=== PATIENT | female | born 1945 | race Caucasian/White ===

== ENCOUNTER → 2019-12-27 | Outpatient (CLI) | payer MEDICARE, OTHER | LOC: M.MRI 13:24 | PROVIDERS: ATTEND Orthopaedic Surgery | DX: S83.242A Other tear of medial meniscus, current injury, left knee, initial encounter (principal); M17.12 Unilateral primary osteoarthritis, left knee; M25.562 Pain in left knee; X58.XXXA Exposure to other specified factors, initial encounter; Y93.89 Activity, other specified; Y92.89 Other specified places as the place of occurrence of the external cause; Y99.8 Other external cause status ==

== ENCOUNTER → 2020-01-18 | Outpatient (CLI) | payer MEDICARE, OTHER ==
[~2020-01-18] MED LIST: ALL DAY ALLERGY10 M3 PO; ASPIR-TRIN325 MG PO; COLACE 100 MG100 MG PO; CYCLOBENZAPRINE10 MG PO; DOXYCYCLINE HYC20 MG PO; HYDROCODON-ACE1 EAC7 PO; LORAZEPAM 0.50.5 MG PO; PERCOCET 5-3251 EACH PO; PHENERGAN 25 MG25 M1 PO; PROAIR HFA8.5 GM INH; ROSUVASTATIN CA40 MG PO; TELMISARTAN40 MG PO; TUMS200 MG PO; XARELTO10 MG PO
[2020-01-18 11:28] LABS: URINE BILIRUBIN NEGATIVE (Negative); URINE BLOOD 2+ (Negative); URINE CLARITY SL CLOUDY; URINE COLOR YELLOW; URINE GLUCOSE-RANDOM NEGATIVE (Negative); URINE KETONES NEGATIVE (Negative); URINE LEUKOCYTES-REFLEX 1+ (Negative); URINE NITRITE-REFLEX NEGATIVE (Negative); URINE PROTEIN 2+ (Negative); URINE SPECIFIC GRAVITY >= 1.030 (1.005-1.030); URINE UROBILINOGEN 0.2 E.U./dl (0.2-1.0)
[2020-01-18 11:34] LABS: SQUAMOUS 4-10 Moderate /LPF (0-3)
[2020-01-18 11:35] LABS: URINE WBC-REFLEX 6-15 Few /HPF (0-5)
[2020-01-18 11:36] LABS: HYALINE CASTS 4-10 Moderate /LPF (None Seen); MUCUS >6 Heavy strn/LPF (None Seen)
[2020-01-18 11:36] LABS: HEMATOCRIT 41.8 % (37.0-47.0); HEMOGLOBIN 14.2 gm/dL (12.0-15.0); MCH 29.6 pg (26.0-34.0); MCV 87.2 fL (80.0-100.0); MPV 10.5 fl. (7.2-11.1); RBC 4.79 mil/uL (4.20-5.00); RDW-CV 14.1 % (10.5-14.5); WBC 5.6 thou/uL (4.0-11.0)
[2020-01-18 11:37] LABS: CRYSTALS None Seen /LPF (None Seen)
[2020-01-18 11:44] LABS: PROTIME 10.3 Seconds (9.20-11.50)
[2020-01-18 11:47] LABS: ALBUMIN 3.6 g/dL (3.4-5.0); CALCIUM 8.9 mg/dL (8.5-10.1); CREATININE 1.3 mg/dL (0.6-1.3); POTASSIUM 3.7 mmol/L (3.5-5.1); TOTAL BILIRUBIN 0.6 mg/dL (<0.1-1.0); TOTAL PROTEIN 7.8 g/dL (6.4-8.2)
--- NOTE | 2020-01-18 13:54 | EKG ---
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1945 Requested By: Cristiano Johnson Order Number: [id number] Reading MD: Giorgio Hopkins Measurements Intervals Mobile Rate: 78 P: 51 LA: 143 QRS: -13 QRSD: 90 T: 49 QT: 389 QTc: 444 Interpretive Statements Sinus rhythm Probable left atrial enlargement Abnormal R-wave progression, early transition Borderline repolarization abnormality No previous ECG available for comparison Electronically Signed On 01-18-2020 13:54:27 CDT by Giorgio Hopkins [email or web address] <ELECTRONICALLY SIGNED> By: Giorgio Hopkins MD, [facility] 01/18/20 1354 1141 1141 Giorgio Hopkins MD, [facility] /EPI
== END ==
LOC: M.LAB 01-17 14:06
PROVIDERS: ATTEND Orthopaedic Surgery
DX: Z01.818 Encounter for other preprocedural examination (principal); Z11.59 Encounter for screening for other viral diseases; M17.12 Unilateral primary osteoarthritis, left knee; I49.9 Cardiac arrhythmia, unspecified

== ENCOUNTER 2020-01-24 07:04 | Inpatient (IN) | payer MEDICARE, OTHER ==
--- NOTE | 2020-01-12 10:35 | NUR ---
PATIENT UNABLE TO ATTEND PREOP JOINT REPLACEMENT CLASS. INFORMATION ON ON-LINE CLASS GIVEN TO PATIENT AND STRONGLY ENCOURAGED TO REVIEW. PATIENT STATES SHE WILL.
[~2020-01-24] VITALS: Ht 157.5 cm; Wt 83.9 kg
[~2020-01-24 07:04] MED LIST changes: -ASPIR-TRIN325 MG PO; -COLACE 100 MG100 MG PO; -CYCLOBENZAPRINE10 MG PO; -HYDROCODON-ACE1 EAC7 PO; -LORAZEPAM 0.50.5 MG PO; -PERCOCET 5-3251 EACH PO; -PHENERGAN 25 MG25 M1 PO; -XARELTO10 MG PO
[2020-01-24 07:30] VITALS: BP 150/68
[2020-01-24 11:30] VITALS: BP 119/52
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
[2020-01-24 15:40] VITALS: BP 131/54
--- NOTE | 2020-01-24 16:21 | NUR ---
PT ATE SOME APPLE SAUCE. POLAR PACK TO LEFT KNEE. MACHINE REFILLED WITH ICE WATER. PT STOOD UP WITH PHYSICAL THERAPY AND VOMITED. PT FEELS BETTER. DENIES PAIN AT THIS TIME. HEMOVAC DRAIN TO LEFT KNEE. NO DRAINAGE NOTED ON INCISION DRESSING. FEET PUMPS ON BILATERAL FEET. AT BEDSIDE DID BRING IN PT'S WALKER. IV FLUIDS 1/2 NS INFUSING WITHOUT DIFFICULTY LEFT HAND AT 75ML/HR. WILL CONTINUE TO MONITOR.
[2020-01-24 17:16] VITALS: BP 122/52
--- NOTE | 2020-01-24 17:30 | NUR ---
got pt up to bedside commode with assist x 2 and was able to urinate. assisted back to bed. patient tolerated well. did have to sit on side of bed for moment to get her barrings. gets a little dizzy when she looks out the window when trying to get up.
[2020-01-24 17:37] LABS: HEMATOCRIT 38.6 % (37.0-47.0); MCH 29.5 pg (26.0-34.0); MCHC 33.7 g/dL (28.0-37.0); MCV 87.4 fL (80.0-100.0); MPV 10.7 fl. (7.2-11.1); RBC 4.42 mil/uL (4.20-5.00); RDW-CV 14.1 % (10.5-14.5); WBC 10.9 thou/uL (4.0-11.0)
[2020-01-24 20:00] VITALS: BP 136/61
[2020-01-25 00:20] VITALS: BP 143/71
[2020-01-25 03:34] LABS: HEMOGLOBIN 12.4 gm/dL (12.0-15.0)
[2020-01-25 03:40] VITALS: BP 145/63
[2020-01-25 03:52] LABS: CALCIUM 9.6 mg/dL (8.5-10.1); CREATININE 1.2 mg/dL (0.6-1.3); MAGNESIUM 2.2 mg/dL (1.8-2.4); POTASSIUM 4.1 mmol/L (3.5-5.1)
--- NOTE | 2020-01-25 04:29 | NUR ---
PT A&O X 4, VSS ON 2L BY NC WITH CAPNO. PAIN MANAGED WITH OXY IR. PT UP TO BSC WITH MINIMUM ASSIST. DRESSING TO LT KNEE C/D/I. SCDS, POLAR PACK IN PLACE. SANGUINEOUS DRAINAGE IN HEMOVAC. IVF RUNNING ORDERED. CALL LIGHT WITHIN REACH. WILL CONTINUE TO MONITOR.
--- NOTE | 2020-01-25 05:59 | NUR ---
PT VOMITED PURPLISH BLACK EMESIS. ZOFRAN, ICE CHIPS GIVEN. WILL CONTINUE TO MONITOR.
[2020-01-25 07:45] VITALS: BP 152/63
[2020-01-25] MEDS ORDERED: HYDROCODON-ACE1 EAC7 PO (09:30)
[2020-01-25] MEDS ORDERED: XARELTO10 MG PO (09:30)
[2020-01-25] MEDS ORDERED: LORAZEPAM 0.50.5 MG PO (09:30)
[2020-01-25] MEDS ORDERED: PERCOCET 5-3251 EACH PO (09:30)
[2020-01-25] MEDS ORDERED: PHENERGAN 25 MG25 M1 PO (09:30)
--- NOTE | 2020-01-25 10:00 | NUR ---
THIS CM CALLED IN PRESCRIPTION, WRITTEN, TO [facility] IN [facility]. COPAY WAS $192. INFORMED DAYANNA ARZOLA ,WHO WILL LET PT. KNOW THIS AMOUNT.
--- NOTE | 2020-01-25 10:21 | OP ---
[facility] [address] [place] [address] OPERATIVE REPORT Name: DARA DELUNA Room: [address] [employer].#: [id number] Admission: 01/24/20 Attend Phys: Darrick Lozoya Discharge: Date of : 49 Report #: [id number] THIS REPORT FOR: //name// cc: Maci Chen Anna S. DO ~ THIS REPORT FOR: //name// CC: Maci Carpenter DATE OF SERVICE: 01/24/2020 PREOPERATIVE DIAGNOSIS: Left knee osteoarthritis. POSTOPERATIVE DIAGNOSIS: Left knee osteoarthritis. PROCEDURE: Left total knee arthroplasty. SURGEON: Cristiano Johnson II, DO. ASSEMBLER FILTERS: KEARA Troncoso. ANESTHESIA: General endotracheal. ESTIMATED BLOOD LOSS: 50 mL. ANTIBIOTICS: Ancef preoperatively. DRAINS: Medium Hemovac. COMPLICATIONS: None. CONDITION OF THE PATIENT: Stable to recovery room. IMPLANTS: Listed in operative record and progress note. BRIEF HISTORY: The patient was seen in the preoperative area. Preoperative H and P was performed. Site was marked. Questions were answered. Risks and benefits were discussed with the patient in detail about the surgery. The patient wished to proceed, assuming all risks. DESCRIPTION OF PROCEDURE: The patient was taken to the operative suite and placed supine on the operative table, given appropriate anesthesia. A well-padded tourniquet was applied to upper thigh, which was inflated to 300 mmHg after gravity exsanguination. The operative knee was sterilely prepped and [facility] [address] [place] [address] OPERATIVE REPORT Name: DARA DELUNA Masha Room: [address] Ilda.#: [id number] Admission: 01/24/20 Attend Phys: Darrick Lozoya Discharge: Date of : 49 Report #: [id number] draped. Surgery began by midline incision. This was carried down to the subcutaneous tissues. A medial parapatellar arthrotomy was performed and carried down to bone. Patella was then everted and excess soft tissue was removed from around the femur. Femoral cutting block was then applied, checked with a drop erika for rotational alignment, pinned in appropriate position and appropriate cuts were made. A 4-in-1 cutting block was then applied, checked for rotational alignment, pinned in appropriate position and appropriate cuts were made. The tibia was then exposed. Excess meniscus was removed. Retractor was placed on collateral ligaments. The tibial cutting block was applied, pinned in appropriate position, checked with drop erika for rotational alignment and slope, and appropriate cut was made. The tibial bone was removed. Tibial base plate was then applied, checked for rotational alignment with the drop erika and pinned in appropriate position. The femur was then applied and box cut was reamed. This was then trialed with appropriate spacer, which showed excellent fit and fill and excellent stability of the knee throughout all range of motion. Patella was reamed in appropriate fashion and sized to appropriate size. Three peg holes were drilled and it was then trialed and showed excellent flexion, extension, excellent tracking of the patella within the groove. These trials were removed. The tibia was punched in appropriate fashion. Bone ends were cleansed with Pulsavac irrigation and cement was mixed and applied to final implants. These were malleted into position and held the knee in extension and compressed to allow cement to cure. After it cured, excess was removed utilizing a [place] and osteotome. Wound was then copiously irrigated and the final spacer was then malleted into position. The tourniquet was deflated. Hemostasis was obtained with electrocautery. Pain cocktail was injected. PRP gel sprayed throughout the internal aspects of the knee. Medium Hemovac drain was applied. The capsule was closed with 2 FiberWire and 1 Vicryl in [id number] fashion. Skin was closed with 2-0 Vicryl and running 3-0 Monocryl. Dermabond and sterile dressing applied. Horace wrap and PolarCare applied. The patient transported to recovery room in stable condition. Counts were correct throughout the procedure. <ELECTRONICALLY SIGNED> By: Cristiano Johnson II, DO 01/25/20 1021 2236 2254Rtammy Johnson II, DO /nt
--- NOTE | 2020-01-25 15:10 | NUR ---
pt signed vendor choice form to go w/[facility]. cm faxed referal to [facility] and britney confirmed receipt. pt stated she could not afford $192 copay for xaltero - medication changed to aspirin. cm to cont to follow. d/c needs to fax order to [facility] at d/c. pt lives at home with spouse, who was at bedside.
[2020-01-25] MEDS ORDERED: ASPIR-TRIN325 MG PO (15:15)
[2020-01-25 15:51] VITALS: BP 119/50
--- NOTE | 2020-01-25 17:03 | NUR ---
RECIEVED O.T. ORDERS. WILL DEFER TO P.T. AT THIS TIME. PLEASE ORDER FURTHER O.T. SERVICES IF NEEDED.
--- NOTE | 2020-01-25 17:28 | NUR ---
Pt AOx4. Pt had nausea/vomiting several times this shift. Multiple interventions done to alleviate. Pt is now resting and c/o minimal pain. CPM done once this shift d/t inability to tolerate. Pt is still receiving IVF d/t unable to eat/drink much. Polar pack in place, SWAPNA hose on. Up with assist x1 with gb and walker. Hourly rounding complete will continue to monitor
[2020-01-25 21:30] VITALS: BP 156/64
[2020-01-26 00:45] VITALS: BP 104/48
[2020-01-26 05:39] LABS: HEMATOCRIT 32.1 % (37.0-47.0)
--- NOTE | 2020-01-26 07:43 | NUR ---
PATIENT HAS SLEPT WELL THROUGHOUT THE NIGHT. VSS ON RA. PAIN WELL CONTROLLED. MEDICATIONS GIVEN ORDERED AND CHARTED. PATIENT UP WITH ASSIST X 1 TO THE BSC. DRESSING TO LEFT KNEE-C/D/I, AND SWAPNA URBAN, JULIO C'S AND POLAR CARE IN PLACE. IV IN LEFT HAND-SL. PATIENT INSTRUCTED TO USE CALL LIGHT WHEN NEEDING ASSISTANCE. HOURLY ROUNDS MADE. WILL CONTINUE WITH PLAN OF CARE AND NURSING TO MONITOR.
[2020-01-26 08:10] VITALS: BP 130/60
--- NOTE | 2020-01-26 09:07 | NUR ---
cm confirmed with britney at [facility] pt will start care tomorrow.
[2020-01-26 09:13] VITALS: BP 104/48
[2020-01-26] MEDS ORDERED: COLACE 100 MG100 MG PO (11:12)
[2020-01-26] MEDS ORDERED: CYCLOBENZAPRINE10 MG PO (11:12)
== END 2020-01-26 14:55 | disposition home health service (06) | DRG 470 ==
LOC: M.PRE → M.ORTHSURG 07:04 → M.TBA 07:04 → M.ORTHSURG 07:04 → M.PRE 11:04 → M.ORTHSURG 11:36 → M.PRE 11:52 → M.ORTHSURG 01-25 21:27
PROVIDERS: Orthopaedic Surgery; ADMIT Internal Medicine; ATTEND Internal Medicine
PROC: 0SRD069 Replacement of Left Knee Joint with Oxidized Zirconium on Polyethylene Synthetic Substitute, Cemented, Open Approach (ICD-10-PCS; principal; 2020-01-24)
DX: M17.12 Unilateral primary osteoarthritis, left knee (principal); E78.00 Pure hypercholesterolemia, unspecified; I10 Essential (primary) hypertension; J45.909 Unspecified asthma, uncomplicated; E78.5 Hyperlipidemia, unspecified; L71.9 Rosacea, unspecified; T41.45XA Adverse effect of unspecified anesthetic, initial encounter; Z90.49 Acquired absence of other specified parts of digestive tract; Z90.710 Acquired absence of both cervix and uterus; Z98.42 Cataract extraction status, left eye; Z98.41 Cataract extraction status, right eye; Z80.3 Family history of malignant neoplasm of breast; Y92.89 Other specified places as the place of occurrence of the external cause; Z79.899 Other long term (current) drug therapy